=== PATIENT | female | born 1985 | race Caucasian/White ===

== ENCOUNTER 2020-01-29 16:00 | Outpatient (RCR) | payer OTHER | END 2020-02-03 | LOC: PT 16:00 | PROVIDERS: ATTEND Orthopaedic Surgery | DX: S43.022A Posterior subluxation of left humerus, initial encounter (principal); S46.012A Strain of muscle(s) and tendon(s) of the rotator cuff of left shoulder, initial encounter ==

== ENCOUNTER 2020-03-03 10:54 | Outpatient (RCR) | payer OTHER | END 2020-03-05 | LOC: PT 10:54 | PROVIDERS: ATTEND Orthopaedic Surgery | DX: S43.022A Posterior subluxation of left humerus, initial encounter (principal); S46.012A Strain of muscle(s) and tendon(s) of the rotator cuff of left shoulder, initial encounter | CPT/HCPCS: 97139 ==

== ENCOUNTER 2020-03-17 11:00 | Outpatient (RCR) | payer OTHER | END 2020-04-05 | LOC: PT 11:00 | PROVIDERS: ATTEND Orthopaedic Surgery | DX: S43.022 Posterior subluxation of left humerus (principal); S46.012D Strain of muscle(s) and tendon(s) of the rotator cuff of left shoulder, subsequent encounter; M62.81 Muscle weakness (generalized); M25.512 Pain in left shoulder; M25.612 Stiffness of left shoulder, not elsewhere classified | CPT/HCPCS: 97139 ==